=== PATIENT | female | born 1985 ===

== ENCOUNTER 2016-06-15 06:24 | Day surgery (SDC) | payer OTHER ==
[~2016-06-15] VITALS: Ht 154.9 cm; Wt 51.7 kg
[2016-06-15] VITALS (14 sets, daily range): BP systolic 98–137; BP diastolic 59–89
[~2016-06-15 06:24] MED LIST: SINGULAIR10 MG ORAL
[2016-06-15] MEDS ORDERED: Lidocaine 1% Plain 30 ml INJ ONE (06:29)
[2016-06-15] MEDS ORDERED: Silver Nitrate Stick TOPIC ONE (06:29)
[2016-06-15] MEDS ORDERED: Ferric Subsulfate (Monsel's Soln) 30ml TOPIC ONE (06:30)
[2016-06-15] MEDS ORDERED: Lugol's (Strong Iodine) 30ml btl TOPIC ONE (06:30)
[2016-06-15] MEDS ORDERED: Metoclopramide 10mg/2ml Inj IVP PRN ×2 (07:00)
[2016-06-15] MEDS ORDERED: fentaNYL 100 mcg/2 mL IV PRN (07:00)
--- NOTE | 2016-06-15 07:18 | Pre-Procedure Note/Attestation ---
Pre-Procedure Note/Attestation Complete Prior to Procedure Planned Procedure: not applicable Procedure Narrative: LEEP (Loop electrosurgical excisional procedure) Indications for Procedure Pre-Operative Diagnosis: Severe/high grade cervical dysplasia Attestation I attest that I discussed the nature of the procedure; its benefits; risks and complications; and alternatives (and the risks and benefits of such alternatives ), prior to the procedure, with the patient (or the patient's legal construction representative). I attest that, if there was a reasonable possibility of needing a blood transfusion, the patient (or the patient's legal construction representative) was given the [facility] standardized written summary, pursuant to the Aiden Candida Blood Safety Act ([place] Health and Safety Code # 1645, as amended). I attest that I re-evaluated the patient just prior to the surgery and that there has been no change in the patient's H&P, except as documented below: PATRICK LEI June 15, 2016 07:18
[2016-06-15] MEDS ORDERED: NS Irrig 1000ml IRRIG ONE (07:20)
[2016-06-15] MEDS ORDERED: Propofol 10mg/ml 20ml IV ONE (07:30)
[2016-06-15] MEDS ORDERED: Lidocaine 1% MPF 10mg/ml 5ml ONE (07:30)
[2016-06-15] MEDS ORDERED: Metoclopramide 10mg/2ml Inj ONE (07:30)
[2016-06-15] MEDS ORDERED: NS Irrig 1000ml ONE (07:30)
[2016-06-15] MEDS ORDERED: fentaNYL 100 mcg/2 mL IV ONE (07:30)
[2016-06-15] MEDS ORDERED: Sterile Water Irrig 1000ml IRRIG ONE (07:30)
[2016-06-15] MEDS ORDERED: LR 1000ml ONE (07:30)
[2016-06-15] MEDS ORDERED: Ketorolac 30mg Inj ONE (07:30)
[2016-06-15] MEDS ORDERED: Midazolam 2mg/2ml Inj ONE (07:30)
[2016-06-15] MEDS ORDERED: Lidocaine HCl 2% Jelly 5ml Tube TOPIC ONE (07:42)
--- NOTE | 2016-06-15 08:00 | Operative Note - PDOC ---
Operative Note Operative Note Date of Operation/Procedure: June 15, 2016 Pre-op Diagnosis: Severe/high grade cervical dysplasia Procedure: LEEP (Loop electrosurgical excision procedure) Post-op Diagnosis: same as pre-op Operative Findings: consistent w/pre-op dx studies Surgeon: Patrick Lei M.D. Anesthesiologist: Philomena Azevedo Specimen: yes - LEEP & ECC Complications: none Fluids: 500 ml Estimated Blood Loss: minimal Drains: none Implant(s) used?: No PATRICK LEI June 15, 2016 08:00
--- NOTE | 2016-06-15 08:02 | Discharge Instructions ---
Discharge Instructions Discharge Instructions Follow up with: Dr. Patrick Lei Activity: other - pelvic rest for 4 weeks For Surgical Patients May shower: Yes For Congestive Heart Failure Reminder Report to your physician any weight gain of 5 pounds or more in one week. PATRICK LEI June 15, 2016 08:02
--- NOTE | 2016-06-15 08:05 | Immediate Post-Op Evaluation ---
Immediate Post-Op Evalulation Immediate Post-Op Evalulation Procedure: LEEP Date of Evaluation: June 15, 2016 Time of Evaluation: 08:00 IV Fluids: 500 Blood Pressure Systolic: 100 Blood Pressure Diastolic: 61 Pulse Rate: 65 Respiratory Rate: 14 O2 Sat by Pulse Oximetry: 99 Temperature (Fahrenheit): 98.2 Nausea: No Vomiting: No Complications none Patient Status: awake, reacts, patent Hydration Status: adequate Drug: declined JUANA POWELL CRNA June 15, 2016 08:05
--- NOTE | 2016-06-15 08:08 | Anethesia Preoperative Eval ---
Anesthesia Pre-op PMH/ROS General Date of Evaluation: June 15, 2016 Time of Evaluation: 07:15 Anesthesiologist: divina ASA Score: ASA 1 Mallampati Score Class I : Soft palate, uvula, fauces, pillars visible Class II: Soft palate, uvula, fauces visible Class III: Soft palate, base of uvula visible Class IV: Only hard plate visible Mallampati Classification: Class II Surgeon: Artur Diagnosis: High Grade cervical dysplasia Surgical Procedure: LEEP Anesthesia History: none Family History: no anesthesia problems Allergies: Coded Allergies: CODEINE (Verified Allergy, Mild, 06/14/16) FACIAL SWELLING,HEAD ITCHES Medications: see eMAR Past Medical History Cardiovascular: Denies: CAD, HTN, NC, arrhythmia, other, valve dz Pulmonary: Denies: COPD, BRUNA, asthma, other Gastrointestinal/Genitourinary: Denies: CRI, ESRD, GERD, other Neurologic/Psychiatric: Denies: CVA, TIA, dementia, depression/anxiety, other Endocrine: Denies: DM, hypothyroidism, other, steroids HEENT: Denies: [place] (L), [place] (R), cataract (L), cataract (R), glaucoma, other Hematology/Immune: Denies: DVT, anemia, bleeding disorder, other Musculoskeletal/Integumentary: Denies: DDD, DJD, OA, RA, edema, other PSxH Narrative: wisdom teeth removal Anesthesia Pre-op Phys. Exam Physician Exam Last Vital Signs Date Time Temp Pulse Resp B/P Pulse Ox O2 Delivery O2 Flow Rate FiO2 06/15/16 07:04 98.3 88 20 137/89 100 Room Air Constitutional: NAD Neurologic: CN 2-12 intact Cardiovascular: RRR Respiratory: CTA Airway Exam Mallampati Classification 2 Mallampati Score: Class II MO: full ROM: full Dentures: no lower, no upper Anesthesia Pre-op A/P Labs Urine Test Test 06/15/16 06:30 Urine HCG, Qualitative Negative Risk Assessment & Plan Plan: general Status Change Before Surgery: No Pre-Antibiotics Drug: declined JUANA POWELL CRNA June 15, 2016 08:08
--- NOTE | 2016-06-15 08:28 | Pre-op HX & Phy Repo 2 SIG ---
DATE OF ADMISSION: 06/15/2016 HISTORY OF PRESENT ILLNESS: This is a 30-year-old female, who presents for LEEP procedure, which stands for loop electrosurgical excision procedure for severe cervical dysplasia. The patient has a history of abnormal Pap smear on and off for the past six years, which has been evaluated by colposcopy in the past. The patient does not have any history of any other additional cervical procedure such as LEEP or cryotherapy. 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 This was evaluated with a colposcopy, which showed high-grade squamous intraepithelial lesion, VIKRAM 2, on the colposcopy done in April. Given these findings of high-grade severe cervical dysplasia, it was recommended to receive treatment. Risks, benefits, and alternatives were discussed in terms of treatment with an excisional procedure such as LEEP versus cryotherapy and the patient desired to proceed with the LEEP procedure. Risks of surgery including, but not limited to bleeding, possibility of hemorrhage, infection, damage to nearby structures, possible including labor and scarring were all discussed with the patient, risks of anesthesia were also discussed and the patient desired to proceed with the surgery. 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 She has history of abnormal Pap smear and HPV. Otherwise, denies any other sexually transmitted infections. PAST MEDICAL HISTORY: History of asthma and seasonal allergies. PAST SURGICAL HISTORY: None. MEDICATIONS: Singulair. ALLERGIES: Codeine. SOCIAL HISTORY: Denies smoking or drug use. Drinks alcohol socially. PHYSICAL EXAMINATION: GENERAL APPEARANCE: This is a well-developed and well-nourished female. VITAL SIGNS: Blood pressure is 118/70. Weight is 116. HEART: Regular rate and rhythm. LUNGS: Clear to auscultation bilaterally. ABDOMEN: Soft, nontender, and nondistended. LABORATORY DATA: Blood work performed by her primary care doctor on 06/08/2015 showed CBC with hemoglobin of 12.7, hematocrit of 38.6, white count 4.4, and platelets 284,000. Beta HCG quant is negative. ASSESSMENT AND PLAN: This is a 30-year-old female who was found to have abnormal Pap smear in the form of high-grade squamous intraepithelial lesion, which was evaluated with colposcopy, which showed high-grade/severe cervical dysplasia, who presents for loop electrosurgical excision procedure. Risks, benefits, and alternatives were discussed with the patient. As per , the patient desires to proceed with surgery. The patient also has received medical clearance from her primary care doctor. Please see his notes for medical clearance. Therefore, the plan is to proceed with the LEEP surgery on 06/15/2016. Elva Siddiqui M.D. DR: Daisy JOB#: [id number] CC:
--- NOTE | 2016-06-15 10:32 | 48 Hour Post Anesthesia Eval ---
Post Anesthesia Evaluation Procedure: LEEP Date of Evaluation: June 15, 2016 Time of Evaluation: 10:30 Blood Pressure Systolic: 109 0: 66 Pulse Rate: 70 Respiratory Rate: 14 O2 Sat by Pulse Oximetry: 99 Airway: patent Nausea: No Vomiting: No Hydration Status: adequate Mental Status/LOC: patient returned to baseline Post-Anesthesia Complications: none Follow-up care needed: N/A JUANA POWELL CRNA June 15, 2016 10:32
--- NOTE | 2016-06-21 04:09 | Operative Note - Dictated ---
DATE OF OPERATION: 06/15/2016 PREOPERATIVE DIAGNOSIS: High-grade cervical dysplasia. POSTOPERATIVE DIAGNOSIS: High-grade cervical dysplasia. PROCEDURE: LEEP (loop electrosurgical excisional procedure). SURGEON: Elva Siddiqui M.D. ANESTHESIOLOGIST: Philomena Azevedo. ANESTHESIA: General. EBL: 5 mL. IV FLUIDS: 500 mL. COMPLICATIONS: None. 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 She had originally a Pap smear, which showed HSIL Pap. Risks, benefits, and alternatives were discussed with patient. The patient desired to proceed with the surgery. OPERATIVE FINDINGS: Normal external female genitalia. Vulva, vagina, and cervix without any difficulty. OPERATIVE REPORT: The patient was taken to the operating room where general anesthesia was found to be adequate. She was then prepped and draped in the dorsal lithotomy position using Douglas stirrups. Time-out was given with all staff present. A bivalve speculum was placed into the vagina and cervix was fully visualized and noted to be normal appearing without any . A paracervical block with 1% lidocaine was given. The LEEP was then performed with the loop electrode in a single attempt. The LEEP specimen was then tagged with a silk suture at 12 o'clock. An endocervical curettage was then performed using and sent off for pathology as well. Excellent hemostasis was then obtained using cautery using the Rollerball tip. 2% lidocaine jelly was placed into the cervical canal and Monsel's was also placed into the excision site. Excellent hemostasis was noted. The patient was then taken out of anesthesia and to recovery room in stable condition. Lap, instrument, and needle counts were correct x2 at the end the procedure. Elva Siddiqui M.D. DR: ELMER JOB#: [id number] CC:
== END 2016-06-15 10:55 | disposition home or self-care (01) ==
LOC: SUR 06:24
DX: D06.9 Carcinoma in situ of cervix, unspecified (principal); J45.909 Unspecified asthma, uncomplicated; F41.9 Anxiety disorder, unspecified; Z88.5 Allergy status to narcotic agent
CPT/HCPCS: 57522; 81025; J1885; J2001; J2250; J2405; J2704; J2765; J3010; J7120; 94003; 94150